=== PATIENT | female | born 1985 | race Caucasian/White ===

== ENCOUNTER 2021-01-17 13:58 | Emergency (ER) | payer OTHER ==
[2021-01-17 16:09] LABS: BASOPHIL 0.3 % (0-2); EOSINOPHIL 0.5 & (0-5); HCT 37.4 % (37.0-47.0); HGB 13.1 g/dl (12.5-16.0); MCH 30.5 pg (25.0-31.0); MCV 87.2 fL (78.0-100.0); MPV 9.9 fL (6.0-9.5); NEUTROPHIL 64.1 % (41-80); PLT 201 K/uL (150-400); RBC 4.29 M/uL (4.20-5.40); RDW 11.8 % (11.5-14.0); WBC 7.41 K/uL (4.0-10.5)
[2021-01-17 16:10] LABS: BILIRUBIN NEGATIVE (NEGATIVE); BLOOD 2+ Ery/uL (NEGATIVE); CLARITY CLEAR (CLEAR); COLOR YELLOW (YELLOW); GLUCOSE (U) NORMAL (NORMAL); LEUKOCYTES 2+ Leu/uL (NEGATIVE); NITRITE NEGATIVE (NEGATIVE); PROTEIN NEGATIVE (NEGATIVE); SPECIFIC GRAVITY <=1.005 (1.001-1.030)
[2021-01-17 16:21] LABS: ALBUMIN 3.5 g/dL (3.4-5.0); BILIRUBIN - TOTAL 0.6 mg/dL (0.2-1.0); BUN/CREAT RATIO (CALC) 13.2 RATIO; CREATININE 0.76 mg/dL (0.51-0.95); GLOBULIN (CALCULATION) 4.8 g/dL; POTASSIUM 3.3 mmol/L (3.5-5.1); TOTAL PROTEIN 8.3 g/dL (6.4-8.2)
[2021-01-17 16:22] LABS: BACTERIA 4+
[2021-01-17 16:34] LABS: MARIJUANA (THC) POSITIVE (NEGATIVE)
[2021-01-17 16:35] LABS: AMPHETAMINES NEGATIVE (NEGATIVE); BARBITURATES NEGATIVE (NEGATIVE); ECSTASY (MDMA) NEGATIVE (NEGATIVE); METHADONE NEGATIVE (NEGATIVE); OPIATES NEGATIVE (NEGATIVE); OXYCODONE NEGATIVE (NEGATIVE)
[2021-01-17] MEDS ORDERED: CIPRO500 MG PO (16:38)
[2021-01-17] MEDS ORDERED: ONDANSETRON ODT4 MG PO (16:38)
[2021-01-17] MEDS ORDERED: IBUPROFEN800 MG PO (16:52)
[2021-01-17 16:55] LABS: CORONAVIRUS 2019 SARS-COV-2 NEGATIVE (NEGATIVE); INFLUENZA A NAA NEGATIVE (NEGATIVE)
== END 2021-01-17 17:10 | disposition home or self-care (01) ==
LOC: FER 13:58
PROVIDERS: Internal Medicine
DX: N12 Tubulo-interstitial nephritis, not specified as acute or chronic (principal); E87.6 Hypokalemia; Z86.69 Personal history of other diseases of the nervous system and sense organs; Z90.49 Acquired absence of other specified parts of digestive tract; Z98.890 Other specified postprocedural states; Z20.822 Contact with and (suspected) exposure to COVID-19
CPT/HCPCS: 36415; 71045; 80053; 80305; 81001; 83605; 83690; 84443; 84484; 85025; 87076; 87088; 87186; J0696; J1170; J2405; U0002